=== PATIENT | male | born 1940 | race Caucasian/White ===

== ENCOUNTER 2019-10-20 21:31 | Emergency (ER) | payer OTHER, MEDICARE ==
[~2019-10-20] VITALS: Ht 172.7 cm; Wt 83.9 kg
[2019-10-20 22:22] VITALS: Ht 172.7 cm; Wt 83.9 kg
[2019-10-21 00:42] VITALS: BP 112/60
== END 2019-10-21 00:42 | disposition home or self-care (01) ==
LOC: ED 21:31
DX: S01.111A Laceration without foreign body of right eyelid and periocular area, initial encounter (principal); S90.415A Abrasion, left lesser toe(s), initial encounter; I10 Essential (primary) hypertension; F41.9 Anxiety disorder, unspecified; K21.9 Gastro-esophageal reflux disease without esophagitis; E78.5 Hyperlipidemia, unspecified; Z90.89 Acquired absence of other organs; Z98.890 Other specified postprocedural states; W01.0XXA Fall on same level from slipping, tripping and stumbling without subsequent striking against object, initial encounter; Y93.01 Activity, walking, marching and hiking; Y92.481 Parking lot as the place of occurrence of the external cause; Y99.8 Other external cause status
CPT/HCPCS: J2001